=== PATIENT | female | born 1980 | race Caucasian/White ===

== ENCOUNTER 2017-12-12 08:23 | Emergency (ER) | payer MEDICAID ==
[2017-12-12 08:54] LABS: URINE PH (Dip) POC 5.5 (5.0-8.5)
[2017-12-12 08:54] LABS: URINE BLOOD (Dip) POC 3+ (NEGATIVE); URINE GLUCOSE (Dip) POC Negative (NEGATIVE); URINE KETONES (Dip) POC Negative (NEGATIVE); URINE LEUKOCYTE EST (Dip) POC 1+ (NEGATIVE); URINE NITRITE (Dip) POC Negative (NEGATIVE); URINE TOTAL PROTEIN POC Negative (NEGATIVE)
[2017-12-12 09:04] LABS: ADD MAN DIFF? NO
[2017-12-12 09:08] LABS: WHITE BLOOD COUNT 9.3 10^3/ul (4.8-10.8)
[2017-12-12 09:08] LABS: ABNORMAL IP MESSAGE 1; BASOPHIL # 0.1 10^3/ul (0.0-0.1); BASOPHILS % 0.5 % (0.0-2.0); EOSINOPHILS # 0.5 10^3/ul (0.0-0.5); EOSINOPHILS % 4.9 % (0.0-7.0); HEMOGLOBIN 9.4 g/dl (12.0-16.0); LYMPHOCYTES # 1.8 10^3/ul (0.8-2.9); LYMPHOCYTES % 19.4 % (15.0-51.0); MEAN CORPUSCULAR HEMOGLOBIN 20.1 pg (29.0-33.0); MEAN CORPUSCULAR HGB CONC 30.3 g/dl (32.0-37.0); MEAN CORPUSCULAR VOLUME 66.2 fl (82.0-101.0); MONOCYTE # 0.6 10^3/ul (0.3-0.9); MONOCYTES % 6.3 % (0.0-11.0); NEUTROPHIL # 6.4 10^3/ul (1.6-7.5); NEUTROPHILS % 68.6 % (39.0-77.0); PLATELET COUNT 334 10^3/UL (140-415); RED BLOOD COUNT 4.68 10^6/ul (4.20-5.40); RED CELL DISTRIBUTION WIDTH 18.6 % (11.5-14.5)
[2017-12-12 09:18] LABS: MEAN PLATELET VOLUME 11.3 fl (7.4-10.4); POSITIVE DIFF @See below
== END 2017-12-12 10:26 | disposition home or self-care (01) ==
LOC: FTE 08:23
DX: N93.9 Abnormal uterine and vaginal bleeding, unspecified (principal); Z79.84 Long term (current) use of oral hypoglycemic drugs
CPT/HCPCS: 36415; 81003; 85025; 99283

== ENCOUNTER 2018-04-05 09:21 | Day surgery (SDC) | payer MEDICAID ==
[2018-04-06 08:21] LABS: ADD MAN DIFF? NO
[2018-04-06 08:24] LABS: ABNORMAL IP MESSAGE 1; BASOPHILS % 0.6 % (0.0-2.0); EOSINOPHILS # 0.3 10^3/ul (0.0-0.5); EOSINOPHILS % 4.5 % (0.0-7.0); HEMATOCRIT 32.5 % (37.0-47.0); LYMPHOCYTES % 27.9 % (15.0-51.0); MEAN CORPUSCULAR HEMOGLOBIN 19.3 pg (29.0-33.0); MEAN CORPUSCULAR HGB CONC 28.6 g/dl (32.0-37.0); MEAN CORPUSCULAR VOLUME 67.3 fl (82.0-101.0); MEAN PLATELET VOLUME 11.7 fl (7.4-10.4); MONOCYTE # 0.6 10^3/ul (0.3-0.9); MONOCYTES % 8.9 % (0.0-11.0); NEUTROPHIL # 4.1 10^3/ul (1.6-7.5); NEUTROPHILS % 57.7 % (39.0-77.0); PLATELET COUNT 310 10^3/UL (140-415); RED BLOOD COUNT 4.83 10^6/ul (4.20-5.40); RED CELL DISTRIBUTION WIDTH 18.6 % (11.5-14.5)
[2018-04-06 08:24] LABS: WHITE BLOOD COUNT 7.2 10^3/ul (4.8-10.8)
[2018-04-06 09:00] LABS: HOLD TRANSMISSIONS 1; POSITIVE DIFF @See below
[2018-04-06 09:02] LABS: HEMOGLOBIN 9.3 g/dl (12.0-16.0)
[2018-04-06] MEDS ORDERED: BUPIVACAINE 0.75%/DEXT (SPINAL) 2 ML INJ (12:43)
[2018-04-06] MEDS ORDERED: PROPOFOL 20 ML (12:47)
[2018-04-06] MEDS ORDERED: ROCURONIUM 50 MG INJ (12:47)
[2018-04-06] MEDS ORDERED: LIDOCAINE 1% (MDV) 20 ML INJ (12:48)
[2018-04-06] MEDS ORDERED: FENTAnyl 50 MCG/ML VIAL (12:48)
[2018-04-06] MEDS ORDERED: CEFAZOLIN 1 GM INJ (12:55)
[2018-04-06] MEDS ORDERED: ONDANSETRON 4 MG INJ (13:22)
[2018-04-06] MEDS ORDERED: ROPIVACAINE 0.2% 20 ML VIAL (13:23)
[2018-04-06] MEDS ORDERED: KETOROLAC 30 MG INJ (13:48)
[2018-04-06] MEDS ORDERED: SUGAMMADEX SODIUM 200 MG/2 ML VIAL IV (13:48)
[2018-04-06] MEDS: HYDROmorphONE 1 MG/5 ML IV SYRINGE IV ×3 (14:29→14:52)
[2018-04-06] MEDS ORDERED: ONDANSETRON 4 MG INJ IV (14:30)
[2018-04-06] MEDS ORDERED: OXYCODONE/ACETAMINOPHEN (5/325) TAB PO (14:30)
[2018-04-06] MEDS ORDERED: HYDROmorphONE 1 MG/5 ML IV SYRINGE IV (14:30)
[2018-04-06] MEDS: ONDANSETRON 4 MG INJ IV (16:01)
[2018-04-06] MEDS: HYDROCODONE/APAP (5/325) TAB PO (18:37)
== END 2018-04-06 19:01 | disposition home or self-care (01) ==
LOC: SDS 09:21 → PP2 04-06 15:30 → SDS 04-06 19:01
DX: Z30.2 Encounter for sterilization (principal)
CPT/HCPCS: 58600; 84703; 85025; 88302

== ENCOUNTER 2018-04-09 12:40 | Emergency (ER) | payer MEDICAID | END 2018-04-09 16:54 | disposition home or self-care (01) | LOC: FTE 12:40 | DX: Z48.817 Encounter for surgical aftercare following surgery on the skin and subcutaneous tissue (principal); R40.2412 Glasgow coma scale score 13-15, at arrival to emergency department; Z79.84 Long term (current) use of oral hypoglycemic drugs | CPT/HCPCS: 99281; Z7502 ==

== ENCOUNTER 2018-04-27 15:26 | Emergency (ER) | payer MEDICAID | END 2018-04-27 17:23 | disposition home or self-care (01) | LOC: FTE 15:26 | DX: Z48.01 Encounter for change or removal of surgical wound dressing (principal); Z79.84 Long term (current) use of oral hypoglycemic drugs | CPT/HCPCS: 99283; Z7502 ==